=== PATIENT | female | born 1940 | race Hispanic/Latino ===

== ENCOUNTER 2017-05-19 09:30 | Emergency (ER) | payer MEDICARE, MEDICAID ==
[~2017-05-19] VITALS: Ht 154.9 cm; Wt 68.2 kg
[~2017-05-19 09:30] MED LIST: HYDR-4003 PO; ONDA8TAB10 PO; PANT40TA3 PO
[2017-05-19 09:43] VITALS: BP 119/66; PULSE 72; RESP 20; O2SAT 100
--- NOTE | 2017-05-19 09:53 | ED.REPORT ---
HPI-Abd Pain F 40 and Over Date of Service May 19, 2017 ED Provider: Nieves Tay MD Patient is a 77 year old female with a hx of HTN who presents to the ED from complaining of constant nausea. Pt was experiencing gradually worsening LLQ abdominal pain onset 8 days ago that has since resolved. She was seen at 5 days ago, diagnosed with colitis via CT, and has been on Flagy and Cipro since. Pt reports associated anxiety onset yesterday morning, and headache. She has not been eating but has been drinking electrolyte solutions. She denies vomiting , fever, diarrhea, constipation, chest pain, SOB, or any other symptoms. Nursing Notes Stated Complaint: ABD PAIN Chief Complaint: Female Abdominal Pain Nursing Notes Reviewed: Yes Allergies: Coded Allergies: Penicillins (Verified Allergy, Severe, itching, hives, 01/13/16) Scheduled Ondansetron ODT (Ondansetron ODT) 8 Mg Tab.rapdis 8 MG PO QID Pantoprazole DR (Pantoprazole DR) 40 Mg Tablet.dr 40 MG PO BID Scheduled PRN Hydrocodone-Acetaminophen 5-325 mg (Hydrocodone-Acetaminophen 5-325 mg) 1 Each Tablet 1 TABLET PO [id number] PRN PRN For Pain Ondansetron ODT (Ondansetron ODT) 8 Mg Tab.rapdis 8 MG PO Q8H PRN PRN For Nausea General Time Seen by MD: 09:52 Chief Complaint Nausea Hx Obtained From: Patient, Track Walker Arrived By: Walk-in Sudden in Onset?: No Onset Occurred: 5 days ago Symptom Duration: Since onset Location: : Abdomen lower Quality: Painful Severity: Current: Mild Severity: Maximum: Severe Associated with: Reports: Nausea Pertinent Negative: Pt denies other symptoms Recent Healthcare: Recent doctor visit Similar Sx Previous: Yes Risk Factors )( AAA Risk Stratification Hypertension Risk factors reviewed Past Medical History Past Medical History Reports: Hypertension Past Surgical History Reports: Cholecystectomy Smoking History Unknown if Ever Smoker Social History Alcohol Use: Denies alcohol use Other Social History: Good social support, Local resident Ambulatory Status Independent Review of Systems Constitutional: Denies: Fever Respiratory: Denies: Shortness of breath Cardiovascular: Denies: Chest pain GI: Reports: Abdominal pain, Nausea, Denies: Constipation, Diarrhea, Vomiting Complete sys rev & neg: except as marked. Neurologic: Reports: Headache Psychiatric: Reports: Anxiety Physical Exam Vital Signs Vital Signs (First) Date Time Temp Pulse Resp B/P Pulse Ox O2 Delivery O2 Flow Rate FiO2 05/19/17 09:43 36.8 72 20 119/66 100 Room Air Initial VS: Reviewed, Vital signs normal Head / Eyes: Atraumatic, Normocephalic Neck: Full range of motion Skin: Warm, Dry Neurologic: Alert, Oriented, Nonfocal General/Constitutional: Awake, Alert, No acute distress Respiratory / Chest: Atraumatic, Breath sounds NL, Breath sounds = bilat, No respiratory distress Cardiovascular: Heart rate NL, Regular rhythm, Heart sounds NL Abdomen: Atraumatic, Soft, Non-tender Back: Atraumatic Interpretation & Diagnostics Lab Results Interpretation Result Diagram: 05/19/17 1000 05/19/17 1000 Test 05/19/17 10:00 White Blood Count 3.1th/mm3 (3.8-10.1) Red Blood Count 3.77mil/mm3 (3.90-5.20) Hemoglobin 11.4g/dL (12.0-15.6) Hematocrit 34.4% (35.0-46.0) Mean Corpuscular Volume 91.2fL (81-100) Mean Corpuscular Hemoglobin 30.2pg (27.0-35.0) Mean Corpuscular Hemoglobin Concent 33.1% (32.0-37.0) Red Cell Distribution Width 13.6% (12.3-15.4) Platelet Count 238bil/L (150-400) Neutrophils (%) (Auto) 58.4% (40-74) Lymphocytes (%) (Auto) 25.2% (14-46) Monocytes (%) (Auto) 11.9% (4-12) Eosinophils (%) (Auto) 3.2% (0-5) Basophils (%) (Auto) 1.0% (0-3) Sodium Level 137mEq/L (134-144) Potassium Level 4.1mEq/L (3.5-5.2) Chloride Level 101mEq/L (97-108) Carbon Dioxide Level 24mmol/L (18-29) Blood Urea Nitrogen 9mg/dL (8-27) Creatinine 1.23mg/dL (0.57-1.00) Estimat Glomerular Filtration Rate 60mL/min (>59) Glucose Level 93mg/dL (60-99) Lactic Acid Level 1.3mmol/L (0.4-2.0) Calcium Level 8.9mg/dL (8.5-10.1) Magnesium Level 1.8mg/dL (1.6-2.6) Total Bilirubin 0.4mg/dL (0.0-1.2) Aspartate Amino Transf (AST/SGOT) 41U/L (0-50) Alanine Aminotransferase (ALT/SGPT) 19U/L (0-32) Alkaline Phosphatase 40U/L (25-165) Troponin T 0.010ug/L (0.0-0.011) Total Protein 7.0g/dL (6.4-8.4) Albumin 3.8g/dL (3.4-5.0) Lipase 41U/L (13-60) ECG Interpretation ECG Interpretation: sinus rate 63 normal interval and axis flipped T waves in V1,[address] changes no prior for comparison Time: 10:44 Interpreted by: ED physician Re-Eval/Medical Decision Med Decision/Clinical Course The patient was started on antibiotics for colitis and has developed nausea, as likely that her symptoms are related to her medication. The patient was sent here by her doctor for her anxious feeling in her chest which started yesterday. Given the duration of her symptoms with normal EKG and troponin, she has ruled out for an NM. Her symptoms do not seem ischemic terms of her history there are no associated symptoms other than nausea. The patient was feeling much improved with treatment of her nausea. As far as the patient's colitis she has a benign abdominal exam and states that pain is significantly improved. Re-Evaluation/Progress : Time of Eval: 11:42 )( Re-Eval Abdomen: Soft Re-Evaluation/Progress Note: Rechecked pt who is feeling better. Discussed plan for discharge. Patient understands and agrees with plan. All questions addressed at this time. Counseled Regarding: Diagnosis, Lab results, Need for follow-up, When/why to return to ED Discharge & Departure Primary Impression: Nausea Disposition: Home Discharge Condition All VS Reviewed: Yes Condition: Stable Patient Instructions: Acute Nausea and Vomiting (ED) Additional Instructions: Thank you for entrusting us with your care. Your EKG and examination are reassuring. We did not find a dangerous cause for your symptoms at this time. It is likely that your medications are causing your nausea. Take the nausea medication prescribed 30 minutes prior to taking your medication and every 4 hours as needed. Eat a bland diet and progress as tolerated. Drink small, frequent sips of clear fluids. Follow up with your primary doctor in the next 1-2 days for re-evaluation. Return to the emergency department if you experience increasing abdominal pain, if you are unable to keep fluids down, or any other new or concerning symptoms. Referrals: Randi Rose MD (PCP) [place] Attestation Portions of this note were transcribed by Kostas Kearney. I, Dr. Tay personally performed the history, physical exam and medical decision-making; I reviewed and confirmed the accuracy of the information in the transcribed note. Signed by: Carlitos Sabillon, 05/19/17 copies to: Randi Rose MD, Jena M MD May 19, 2017 09:53 KOSTAS KEARNEY May 19, 2017 10:05
[2017-05-19 10:10] LABS: EOSINOPHILS % (AUTO) 3.2 % (0-5); MONOCYTES % (AUTO) 11.9 % (4-12); Mean Corpuscular Hemoglobin 30.2 pg (27.0-35.0); Mean Corpuscular Volume 91.2 fL (81-100); NEUTROPHILS % (AUTO) 58.4 % (40-74); Platelet Count 238 bil/L (150-400)
[2017-05-19] MEDS ORDERED: 0.9% Sodium Chloride 500 ML IV ONE (10:30)
[2017-05-19] MEDS ORDERED: Ondansetron 2 mg/mL 2 mL Inj IVPUSH PRN (10:30)
[2017-05-19 10:34] LABS: Magnesium 1.8 mg/dL (1.6-2.6)
[2017-05-19 11:09] VITALS: BP 114/57; PULSE 67; RESP 16; O2SAT 98
[2017-05-19 11:49] VITALS: BP 115/56; PULSE 66; RESP 16; O2SAT 98
[2017-05-19] MEDS ORDERED: ONDA8TAB10 PO (11:54)
[2017-05-19 12:09] VITALS: BP 115/56; PULSE 66; RESP 16; O2SAT 98
== END 2017-05-19 12:10 | disposition home or self-care (01) ==
LOC: SED 09:30
DX: R11.0 Nausea (principal); R10.32 Left lower quadrant pain; F41.9 Anxiety disorder, unspecified; R51 Headache; I10 Essential (primary) hypertension; Z90.49 Acquired absence of other specified parts of digestive tract; Z88.0 Allergy status to penicillin
CPT/HCPCS: 36415; 80053; 83605; 83690; 83735; 84484; 85025; 93005; 96374; 99285; J2405; J7040